=== PATIENT | male | born 1995 | race Caucasian/White ===

== ENCOUNTER 2016-07-26 15:55 | Emergency (ER) | payer BC ==
[2016-07-26 16:00] VITALS: BP 142/79
[2016-07-26] MEDS ORDERED: Bacitracin OINTMENT* 1 TUBE TOPICAL ONE (18:45)
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
== END 2016-07-26 19:00 | disposition home or self-care (01) ==
LOC: ED 15:55
DX: T24.211A Burn of second degree of right thigh, initial encounter (principal); Y92.9 Unspecified place or not applicable; T58.11XA Toxic effect of carbon monoxide from utility gas, accidental (unintentional), initial encounter; Z87.891 Personal history of nicotine dependence
CPT/HCPCS: 99281; A9270-GY

== ENCOUNTER 2016-07-27 13:06 | Emergency (ER) | payer BC ==
[2016-07-27] MEDS ORDERED: Ondansetron INJ* 2 MG/ML VIAL IV ONE (17:06)
[2016-07-27] MEDS ORDERED: NS 0.9% 1000 ML* 2,000 ML IV ONE (17:06)
[2016-07-27] MEDS ORDERED: Albuterol/Ipratropium NEB.SOL* Albuterol 2.5 MG/Ipratropium 0.5 MG 3 ML INH ONE (17:07)
--- NOTE | 2016-07-27 18:33 | RAD ---
INDICATION: Shortness of breath. COMPARISON: Similar chest x-ray November 15, 2015 TECHNIQUE: PA and lateral views of the chest were obtained. FINDINGS: The heart and mediastinum are normal in size and contour. The lungs are grossly clear. There is no evidence of large pleural effusion. Visualized bones are normal for the patient's age. There is no radiographic evidence of free air beneath the diaphragm IMPRESSION: No radiographic evidence of acute cardiopulmonary disease.
[2016-07-27 18:38] LABS: Hematocrit 44 % (42-52); Hemoglobin 15.2 g/dl (14.0-18.0); Mean Corpuscular HGB Conc 34 g/dl (31-36); Mean Corpuscular Hemoglobin 29 pg (27-31); Mean Corpuscular Volume 84 fL (80-94); Mean Platelet Volume 8 um3 (7.4-10.4); Red Blood Count 5.26 10^6/ul (4.0-5.4); Red Cell Distribution Width 13 % (10.5-15); White Blood Count 8.8 10^3/ul (3.5-10.8)
[2016-07-27 18:56] LABS: Albumin 4.8 g/dL (3.2-5.2); C Reactive Protein 3.14 mg/L (< 5.00); EGFR African American 108.8 (>60); EGFR Non-African American 84.6 (>60); Globulin 2.9 g/dL (2-4); Potassium 3.8 mmol/L (3.5-5.0); Total Bilirubin 0.4 mg/dL (0.2-1.0); Total Protein 7.7 g/dL (6.4-8.9)
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
[2016-07-27 20:32] VITALS: BP 121/64
== END 2016-07-27 20:31 | disposition home or self-care (01) ==
LOC: ED 13:06
DX: J68.0 Bronchitis and pneumonitis due to chemicals, gases, fumes and vapors (principal); R06.02 Shortness of breath; R11.2 Nausea with vomiting, unspecified; R19.7 Diarrhea, unspecified; R07.9 Chest pain, unspecified
CPT/HCPCS: 36415; 71020; 80053; 83605; 83690; 85025; 86140; 94640; 94760; 96374; 99283; A9270-GY; J2405

== ENCOUNTER 2016-10-12 10:05 | Emergency (ER) | payer BC ==
[2016-10-12 10:29] VITALS: BP 119/60
--- NOTE | 2016-10-12 11:02 | UC ---
Respiratory Complaint HPI - HPI Summary HPI Summary: 4 DAYS OF SINUS PRESSURE, COUGH, CONGESTION. NO FEVER, N/V/D. - History of Current Complaint Chief Complaint: UCRespiratory Stated Complaint: RESP ISSUE Time Seen by Provider: 10/12/16 10:48 Hx Obtained From: Patient Onset/Duration: Gradual Onset, Lasting Days, Still Present Timing: Constant Severity Initially: Moderate Severity Currently: Moderate Pain Intensity: 5 Pain Scale Used: 0-10 Numeric Character: Cough: Productive Aggravating Factors: Nothing Alleviating Factors: Nothing Associated Signs And Symptoms: Positive: URI, Nasal Congestion, Sinus Discomfort. Negative: Fever, Wheezing - Allergies/Home Medications Allergies/Adverse Reactions: Allergies Allergy/AdvReac Type Severity Reaction Status Date / Time Penicillins Allergy Severe Anaphylatic Verified 10/12/16 10:24 Shock Home Medications: Home Medications Uonvigb-Cazsqluixmmqb-Gvsqivqv [Excedrin Migraine 250-250-65 mg] 10/12/16 [ History] Phenylephrine-Dm [Daytime Cold & Cough Chil 2.5-5 mg/5Ml] 10/12/16 [History Confirmed 10/12/16] Ygvutgwgtidvd-Audwkpnocy-Mkmjp [Nyquil Severe Cold/Flu 5-6.25-10-325 mg/15Ml] 10/12/16 [History] PMH/Surg Hx/FS Hx/Imm Hx Previously Healthy: Yes - Surgical History Surgical History: Yes Surgery Procedure, Year, and Place: appendectomy - Family History Known Family History: Positive: Hypertension, Diabetes, Other - asthma no family history of GI conditions - Social History Alcohol Use: Daily Alcohol Amount: 2-3 beers a day Substance Use Type: None Smoking Status (MU): Never Smoked Tobacco Type: Smokeless Tobacco Have You Smoked in the Last Year: No When Did the Patient Quit Smoking/Using Tobacco: 3 YRS AGO Review of Systems Constitutional: Negative ENT: Sore Throat, Nasal Discharge Respiratory: Cough Cardiovascular: Negative Gastrointestinal: Negative Neurological: Headache All Other Systems Reviewed And Are Negative: Yes Physical Exam Triage Information Reviewed: Yes Appearance: Well-Appearing, No Pain Distress, Well-Nourished Vital Signs: Initial Vital Signs Temp 97.4 F 10/12/16 10:24 Pulse 68 10/12/16 10:24 Resp 16 10/12/16 10:24 BP 119/60 10/12/16 10:24 Pulse Ox 100 10/12/16 10:24 Vital Signs Reviewed: Yes Eyes: Positive: Conjunctiva Clear ENT: Positive: Hearing grossly normal, Pharynx normal, TMs normal Neck: Positive: Supple, Nontender, No Lymphadenopathy Respiratory Exam: Normal Cardiovascular Exam: Normal Abdomen Description: Positive: Soft Musculoskeletal: Positive: No Edema Neurological: Positive: Alert Psychological: Positive: Age Appropriate Behavior Skin: Negative: rashes UC Diagnostic Evaluation - Laboratory O2 Sat by Pulse Oximetry: 100 Respiratory Course/Dx - Differential Dx/Diagnosis Provider Diagnoses: ACUTE URI Discharge - Discharge Plan Condition: Stable Disposition: HOME Patient Education Materials: Upper Respiratory Infection (ED) Referrals: No Primary Care Phys,NOPCP [Primary Care Provider] - Additional Instructions: ACUTE UPPER RESPIRATORY INFECTION The common cold is a benign self-limited syndrome representing a group of diseases caused by members of several families of viruses. It is the most frequent acute illness in the [place] and throughout the industrialized world. The term "common cold" refers to a mild upper respiratory viral infection involving, to variable degrees, nasal congestion and discharge ( rhinorrhea), sneezing, sore throat, cough, low-grade fever, headache, and malaise. Symptomatic therapy remains the mainstay of common cold treatment. In the absence of convincing evidence of a secondary bacterial infection, antibiotics are not effective in the treatment of the common cold and should not be prescribed. Be advised that the usual course and duration of illness is up to one and a half weeks for patients with a cold, but can last slightly longer; symptoms usually persist longer in smokers. CALL THE NUMBER BELOW FOR ASSISTANCE IN ESTABLISHING WITH A PCP An additional resource available to assist in finding the appropriate physician for your health care needs is the [facility] ([facility]). You may contact them by calling [phone].
== END 2016-10-12 11:16 | disposition home or self-care (01) ==
LOC: UCEAST 10:05
DX: J06.9 Acute upper respiratory infection, unspecified (principal); Z88.0 Allergy status to penicillin
CPT/HCPCS: 99211; G0463

== ENCOUNTER 2017-08-15 07:01 | Emergency (ER) | payer BC ==
[2017-08-15 07:15] VITALS: BP 125/82
[2017-08-15] MEDS ORDERED: Tetan/Diph/Pertus SYR(Tdap)* 0.5 ML SYR(BOOSTRIX) use SYR IM ONE (07:27)
--- NOTE | 2017-08-15 07:33 | UC ---
Alfonso Navarrete Tenzin, scribed for Dawn Fam MD on 08/15/17 at 0728 . Skin Complaint HPI - HPI Summary HPI Summary: Pt is a 22 years old male presenting to the complaining of open wound on his left foot two weeks ago. Pt is also complaining of the wound getting infected and he used rubbing alcohol on it. Pt rates the pain at 2/10 in severity and describes it as sharp pain Pt states had discharge, thicjj whicte from wound Pt states squeezed out no odor residual erythema. pt also report rash on ankles appeared couple months ago on his left foot and radiated to his upper calf. not raised. not ithing, no pain. Denies blood in stool, gums . No aggravating and alleviating factors were noted. He drinks occasionally couple times a month. Pt does not have PCP. Pt states mostly concerned regarding wound. Allergic to penicillin. He is on his feet a lot for his job. He has not gotten tetanus shot. pt's medications reviewed this visit - History of Current Complaint Chief Complaint: UCGeneralIllness Time Seen by Provider: 08/15/17 07:17 Stated Complaint: SKIN ISSUE ON FOOT Hx Obtained From: Patient Onset/Duration: Lasting Weeks - two weeks ago Onset Severity: Mild Current Severity: Mild Pain Intensity: 2 Pain Scale Used: 0-10 Numeric Location: Foot (Left) Aggravating Factor(s): Nothing Alleviating Factor(s): Nothing - Allergy/Home Medications Allergies/Adverse Reactions: Allergies Allergy/AdvReac Type Severity Reaction Status Date / Time Penicillins Allergy Anaphylatic Verified 08/15/17 07:08 Shock Review of Systems Constitutional: Negative Skin: Other - open wound on left foot. Eyes: Negative ENT: Negative Respiratory: Negative Cardiovascular: Negative Gastrointestinal: Negative Genitourinary: Negative Motor: Negative Neurovascular: Negative Musculoskeletal: Negative Neurological: Negative Psychological: Negative Is Patient Immunocompromised?: Yes All Other Systems Reviewed And Are Negative: Yes PMH/Surg Hx/FS Hx/Imm Hx - Additional Past Medical History Additional PMH: NEGATIVE: MS, PE Previously Healthy: Yes - Surgical History Surgical History: Yes Surgery Procedure, Year, and Place: appendectomy - Family History Known Family History: Positive: Hypertension, Diabetes, Other - asthma no family history of GI conditions - Social History Occupation: Employed Full-time Lives: With Family Alcohol Use: Daily Alcohol Amount: 2-3 beers a day Substance Use Type: None Smoking Status (MU): Never Smoked Tobacco Type: Smokeless Tobacco Have You Smoked in the Last Year: No When Did the Patient Quit Smoking/Using Tobacco: 3 YRS AGO - Immunization History Most Recent Tetanus Shot: UNK Physical Exam - Summary Physical Exam Summary: Vital Signs Reviewed: Yes A+Ox3, no distress Eyes: Conjunctiva Clear, AAKASH. EOM intact and full ENT: Hearing grossly normal TM x 2 clear, mmoist, uvula midline, no exudate, no erythema Neck: Positive: Supple Respiratory: Positive: No respiratory distress, No accessory muscle use + CTA throughout no w/r Cardiovascular: RRR nl s1, s2 no m/r CBT <2 sec abd soft + BS nt/nd no guarding, no distension Musculoskeletal Exam: CAT x 4 without difficulty Strength Intact, ROM Intact Neurological: Positive: Alert, + sensation throughout Psychological: Positive: Normal Response To Family Skin: Positive: no ecchymosis top of left foot pt with 1cm abraison with cicumferencial erythema. no fluctuance mild induration. no drainage or discharge mild tenderness Pt also noted to have petechiae appearing lesions to b/l LE - various depth of darkness in color flat, non tender both feet L>R Triage Information Reviewed: Yes Vital Signs: Initial Vital Signs Temp 97.9 F 08/15/17 07:11 Pulse 91 08/15/17 07:11 Resp 17 08/15/17 07:11 BP 125/82 08/15/17 07:11 Pulse Ox 96 08/15/17 07:11 Course/Dx - Course Course Of Treatment: Pt with wound with mild cellulitis. tdap, abx, soak, wound care, worsening infection. petechia - only notes on feet. Pt otherwise well appearing. will check labs. physician referral center. strict return precautions. pt understanding and agreement with plan - Diagnoses Provider Diagnoses: wound infection. petechiae Discharge - Sign-Out/Discharge Documenting (check all that apply): Discharge/Admit/Transfer - Discharge Plan Condition: Stable Disposition: HOME Prescriptions: DOXYcycline CAP(*) [DOXYcycline 100MG CAP(*)] 100 mg PO BID #14 cap Patient Education Materials: Acute Wound Care (ED), Tdap and Td Vaccines for Adults (ED), Purpura (ED) Forms: *Work Release Referrals: [facility] [place] [facility] [Outside] No Primary Care Phys,NOPCP [Primary Care Provider] - Additional Instructions: - Take antibiotics as prescribed - cover your wound with a thin layer of antibiotic and an bandage to prevent rubbing on your shoe and sock - you were given a tetanus booster today - this may cause your arm to be sore tomorrow- this is normal - Okay to Take Tylenol every 6 hour as needed for pain - Regarding your rash- you had laboratory tests done today to check your blood levels. If there are concerning findings you will receive a call from a care coding team lead - It is recommended you avoid nonsteroidal anti-inflammatory medications (Motrin , Advil, Ibuprofen, Naproxyn, Aleve) -It is recommended you establish with a primary care provider. Contact the physician referral center to get assistance If you develop fever, abdominal pain, vomiting, spontaneous bleeding or any other concerns it is recommended you go directly to the emergency department - Billing Disposition and Condition Condition: STABLE Disposition: Home The documentation as recorded by the Alfonso alvarado Tenzin accurately reflects the service I personally performed and the decisions made by me, Dawn Fam MD.
[2017-08-15 10:52] LABS: ABS Basophils 0.1 10^3/ul (0-0.2); ABS Eosinophils 0.3 10^3/ul (0-0.6); ABS Lymphocytes 2.4 10^3/ul (1.0-4.8); ABS Monocytes 0.7 10^3/ul (0-0.8); ABS Nucleated RBC 0 10^3/ul; Eosinophil % 4.3 % (0-6); Hematocrit 39 % (42-52); Hemoglobin 13.4 g/dl (14.0-18.0); Lymphocyte % 37.8 % (25-47); Mean Corpuscular HGB Conc 35 g/dl (31-36); Mean Corpuscular Hemoglobin 29 pg (27-31); Mean Corpuscular Volume 85 fL (80-94); Mean Platelet Volume 7.7 um3 (7.4-10.4); Nucleated Red Blood Cells % 0.1; Platelet Count 281 10^3/ul (150-450); Red Blood Count 4.56 10^6/ul (4.00-5.40); Red Cell Distribution Width 13 % (10.5-15); White Blood Count 6.4 10^3/ul (3.5-10.8)
[2017-08-15 11:09] LABS: EGFR Non-African American 76.5 (>60)
--- NOTE | 2017-08-16 10:31 | UC ---
- Progress Note Progress Note: PLEASE CALL PATIENT. ADVISE THAT LABS ARE GROSSLY NORMAL HOWEVER SOME SLIGHT ELEVATION IN LIVER FUNCTION TESTS AND CREATININE. NO ACUTE INTERVENTION INDICATED BUT WOULD RECOMMEND REPEATING METABOLIC PANEL IN A COUPLE OF WEEKS TO ENSURE NORMALIZATION. - WILLI KUO MD Discharge - Sign-Out/Discharge Documenting (check all that apply): Post-Discharge Follow Up - Discharge Plan Condition: Stable Disposition: HOME Prescriptions: DOXYcycline CAP(*) [DOXYcycline 100MG CAP(*)] 100 mg PO BID #14 cap Patient Education Materials: Acute Wound Care (ED), Tdap and Td Vaccines for Adults (ED), Purpura (ED) Forms: *Work Release Referrals: [facility] [place] [facility] [Outside] No Primary Care Phys,NOPCP [Primary Care Provider] - Additional Instructions: - Take antibiotics as prescribed - cover your wound with a thin layer of antibiotic and an bandage to prevent rubbing on your shoe and sock - you were given a tetanus booster today - this may cause your arm to be sore tomorrow- this is normal - Okay to Take Tylenol every 6 hour as needed for pain - Regarding your rash- you had laboratory tests done today to check your blood levels. If there are concerning findings you will receive a call from a care sample steamer - It is recommended you avoid nonsteroidal anti-inflammatory medications (Motrin , Advil, Ibuprofen, Naproxyn, Aleve) -It is recommended you establish with a primary care provider. Contact the physician referral center to get assistance If you develop fever, abdominal pain, vomiting, spontaneous bleeding or any other concerns it is recommended you go directly to the emergency department - Billing Disposition and Condition Condition: STABLE Disposition: Home
== END 2017-08-15 07:45 | disposition home or self-care (01) ==
LOC: UCEAST 07:01
DX: S91.302A Unspecified open wound, left foot, initial encounter (principal); L03.116 Cellulitis of left lower limb; R23.3 Spontaneous ecchymoses; R21 Rash and other nonspecific skin eruption; Z88.0 Allergy status to penicillin; Z87.891 Personal history of nicotine dependence; X58.XXXA Exposure to other specified factors, initial encounter; Y92.9 Unspecified place or not applicable
CPT/HCPCS: 36415; 80053; 85025; 90471; 90715; 99212; G0463

== ENCOUNTER 2017-08-17 14:39 | Emergency (ER) | payer BC ==
[2017-08-17] MEDS ORDERED: NS 0.9% 1000 ML* 1,000 ML IV ONE (14:57)
[2017-08-17 15:57] LABS: ABS Basophils 0 10^3/ul (0-0.2); ABS Eosinophils 0.1 10^3/ul (0-0.6); ABS Lymphocytes 1.9 10^3/ul (1.0-4.8); ABS Monocytes 0.5 10^3/ul (0-0.8); ABS Neutrophils 3.7 10^3/ul (1.5-7.7); ABS Nucleated RBC 0 10^3/ul; Eosinophil % 1.2 % (0-6); Hematocrit 39 % (42-52); Hemoglobin 13.3 g/dl (14.0-18.0); Lymphocyte % 30.5 % (25-47); Mean Corpuscular HGB Conc 34 g/dl (31-36); Mean Corpuscular Hemoglobin 29 pg (27-31); Mean Corpuscular Volume 84 fL (80-94); Nucleated Red Blood Cells % 0.1; Platelet Count 289 10^3/ul (150-450); Red Blood Count 4.58 10^6/ul (4.00-5.40); Red Cell Distribution Width 13 % (10.5-15); White Blood Count 6.2 10^3/ul (3.5-10.8)
[2017-08-17 16:14] LABS: EGFR Non-African American 72.9 (>60)
[2017-08-17] MEDS ORDERED: Ibuprofen TAB* 600 MG PO ONE (21:02)
--- NOTE | 2017-08-17 21:04 | ED ---
Syncope/Near Syncope - HPI Summary HPI Summary: Complains of lightheadedness starting today at noon when standing, N/V 1, intermittent AGUIRRE 1 week. No active headache or lightheadedness currently here in the ED. States symptoms improved after eating something. History of intermittent lightheadedness 1 year. Patient states he eats only once a day, but does drink water. Lightheadedness typically improves if he eats something. Is not see PCP so medical history is unknown. Denies fever, cough, sore throat, CP, SOB, diarrhea, abdominal pain, change in urinary BM. Medical history is none. Denies history of blood clots, recent trauma or surgery, unilateral leg pain, hemoptysis. Nonsmoker, occasional EtOH. Denies illegal drug use except marijuana - History Of Current Complaint Chief Complaint: EDDizziness Time Seen by Provider: 08/17/17 17:58 Hx Obtained From: Patient Onset/Duration: Gradual Onset, Lasting Hours Timing: Intermittent Episode Lasting Aggravating Factor(s): Other - Standing up Alleviating Factor(s): Rest Associated Signs And Symptoms: Lightheadedness - Allergies/Home Medications Allergies/Adverse Reactions: Allergies Allergy/AdvReac Type Severity Reaction Status Date / Time Penicillins Allergy Anaphylatic Verified 08/17/17 14:53 Shock Home Medications: Home Medications NK [No Home Medications Reported] 08/17/17 [History Confirmed 08/17/17] PMH/Surg Hx/FS Hx/Imm Hx Endocrine/Hematology History: Denies: Hx Diabetes, Hx Thyroid Disease Cardiovascular History: Denies: Hx Cardiac Arrest, Hx Hypertension Respiratory History: Denies: Hx Asthma, Hx Chronic Obstructive Pulmonary Disease (COPD) GI History: Denies: Hx Ulcer History: Denies: Hx Dialysis EENT History: Denies: Hx Deafness Neurological History: Denies: Hx CVA - Surgical History Surgery Procedure, Year, and Place: appendectomy - Immunization History Date of Tetanus Vaccine: up to date Infectious Disease History: No Infectious Disease History: Denies: Hx Clostridium Difficile, Hx Hepatitis, Hx Human Immunodeficiency Virus (HIV), Hx of Known/Suspected MRSA, Hx Shingles, Hx Tuberculosis, Hx Known/ Suspected VRE, Hx Known/Suspected VRSA, History Other Infectious Disease, Traveled Outside the [place] in Last 30 Days - Family History Known Family History: Positive: Hypertension, Diabetes, Other - asthma no family history of GI conditions - Social History Alcohol Use: Daily Alcohol Amount: 2-3 beers a day Substance Use Type: Reports: None Smoking Status (MU): Never Smoked Tobacco Type: Smokeless Tobacco Have You Smoked in the Last Year: No Review of Systems Constitutional: Negative Eyes: Negative ENT: Negative Cardiovascular: Negative Respiratory: Negative Positive: Vomiting, Nausea Genitourinary: Negative Musculoskeletal: Negative Skin: Negative Neurological: Negative Psychological: Normal All Other Systems Reviewed And Are Negative: Yes Physical Exam Triage Information Reviewed: Yes Vital Signs On Initial Exam: Initial Vitals Temp Pulse Resp BP Pulse Ox 100.1 F 110 20 129/68 100 08/17/17 14:48 08/17/17 14:48 08/17/17 14:48 08/17/17 14:48 08/17/17 14:48 Vital Signs Reviewed: Yes Appearance: Positive: Well-Appearing Skin: Positive: Warm Head/Face: Positive: Normal Head/Face Inspection Eyes: Positive: Normal Neck: Positive: Supple Respiratory/Lung Sounds: Positive: Clear to Auscultation Cardiovascular: Positive: Normal Abdomen Description: Positive: Nontender Musculoskeletal: Positive: Normal Neurological: Positive: Normal Psychiatric: Positive: Normal AVPU Assessment: Alert - Chace Coma Scale Best Eye Response: 4 - Spontaneous Best Motor Response: 6 - Obeys Commands Best Verbal Response: 5 - Oriented Coma Scale Total: 15 Diagnostics - Vital Signs Vital Signs Temp Pulse Resp BP Pulse Ox 08/17/17 18:30 102 123/73 98 08/17/17 18:24 97 117/68 99 08/17/17 18:11 101 125/70 99 08/17/17 18:10 104 115/86 99 08/17/17 18:06 106 115/86 99 08/17/17 18:05 80 128/70 08/17/17 18:01 128/70 08/17/17 16:55 99.1 F 102 12 117/67 97 08/17/17 14:48 100.1 F 110 20 129/68 100 - Laboratory Lab Results: Lab Results 08/17/17 08/17/17 Range/Units 15:45 15:45 WBC 6.2 (3.5-10.8) 10^3/ul RBC 4.58 (4.00-5.40) 10^6/ul Hgb 13.3 L (14.0-18.0) g/dl Hct 39 L (42-52) % MCV 84 (80-94) fL MCH 29 (27-31) pg MCHC 34 (31-36) g/dl RDW 13 (10.5-15) % Plt Count 289 (150-450) 10^3/ul MPV 7.0 L (7.4-10.4) um3 Neut % (Auto) 58.9 (38-83) % Lymph % (Auto) 30.5 (25-47) % [place] % (Auto) 8.7 H (0-7) % Eos % (Auto) 1.2 (0-6) % Baso % (Auto) 0.7 (0-2) % Absolute Neuts (auto) 3.7 (1.5-7.7) 10^3/ul Absolute Lymphs (auto) 1.9 (1.0-4.8) 10^3/ul Absolute Monos (auto) 0.5 (0-0.8) 10^3/ul Absolute Eos (auto) 0.1 (0-0.6) 10^3/ul Absolute Basos (auto) 0 (0-0.2) 10^3/ul Absolute Nucleated RBC 0 10^3/ul Nucleated RBC % 0.1 Sodium 137 (135-145) mmol/L Potassium 3.9 (3.5-5.0) mmol/L Chloride 103 (101-111) mmol/L Carbon Dioxide 26 (22-32) mmol/L Anion Gap 8 (2-11) mmol/L BUN 10 (6-24) mg/dL Creatinine 1.23 H (0.67-1.17) mg/dL Est GFR ( Amer) 93.8 (>60) Est GFR (Non-Af Amer) 72.9 (>60) BUN/Creatinine Ratio 8.1 (8-20) Glucose 92 (70-100) mg/dL Calcium 9.7 (8.6-10.3) mg/dL Result Diagrams: 08/17/17 15:45 08/17/17 15:45 Lab Statement: Any lab studies that have been ordered have been reviewed, and results considered in the medical decision making process. - EKG 1 Cardiac Rate: Tachycardia EKG Rhythm: Sinus Rhythm ST Segment: Non-Specific Ectopy: None Course/Dx Course Of Treatment: Complains of lightheadedness starting today at noon when standing, N/V 1, intermittent AGUIRRE 1 week. No active headache or lightheadedness currently here in the ED. History of intermittent lightheadedness 1 year. Patient states he eats only once a day, but does drink water. Lightheadedness typically improves if he eats something. Is not see PCP so medical history is unknown. Denies fever, cough, sore throat, CP, SOB, diarrhea, abdominal pain, change in urinary BM. Medical history is none. Denies history of blood clots, recent trauma or surgery, unilateral leg pain, hemoptysis. Nonsmoker, occasional EtOH. Denies illegal drug use except marijuana. W/UP: EKG, vital signs and labs unremarkable. Patient developed headache while here in the ED, but no further lightheadedness. Same as prior bilateral frontal headaches this week, which she has been treating successfully with Excedrin. - Diagnoses Provider Diagnoses: Lightheaded, Headache Discharge - Sign-Out/Discharge Documenting (check all that apply): Discharge/Admit/Transfer - Discharge Plan Condition: Stable Disposition: HOME Patient Education Materials: Lightheadedness (ED) Forms: *Work Release Referrals: No Primary Care Phys,NOPCP [Primary Care Provider] - [facility] [Outside] Additional Instructions: Follow-up with primary care for recurrent lightheadedness. Eat more than one meal a day. Return for any new or worsening symptoms - Billing Disposition and Condition Condition: STABLE Disposition: Home
[2017-08-17 21:22] VITALS: BP 112/71
== END 2017-08-17 21:23 | disposition home or self-care (01) ==
LOC: ED 14:39
DX: R42 Dizziness and giddiness (principal); R51 Headache; R11.2 Nausea with vomiting, unspecified
CPT/HCPCS: 36415; 80048; 85025; 93005; 99283; A9270-GY

== ENCOUNTER 2017-09-18 17:49 | Emergency (ER) | payer BC ==
[2017-09-18 18:03] VITALS: BP 137/88
--- NOTE | 2017-09-18 18:23 | RAD ---
INDICATION: Hemoptysis COMPARISON: July 27, 2016 TECHNIQUE: PA and lateral dual-energy views were obtained. FINDINGS: Bones/Soft Tissues: There are no acute bony findings. Cardiomediastinal: The cardiomediastinal silhouette is normal. Lungs: There are no infiltrates. Pleura: There are no pleural effusions. Other: None IMPRESSION: NORMAL CHEST
== END 2017-09-18 20:24 | disposition left against medical advice (07) ==
LOC: ED 17:49
DX: K92.0 Hematemesis (principal); Z53.21 Procedure and treatment not carried out due to patient leaving prior to being seen by health care provider
CPT/HCPCS: 71046

== ENCOUNTER 2017-11-28 12:33 | Emergency (ER) | payer BC ==
[2017-11-28 12:58] VITALS: BP 125/71
--- NOTE | 2017-11-28 13:42 | UC ---
Respiratory Complaint HPI - HPI Summary HPI Summary: 22 y/o male presents to the urgent care c/o body aches, nasal congestion w/ clear nasal discharge, AGUIRRE and dry cough, nausea and light headed for the past 3 days. symptoms started w/ left lower back pain and then the body aches developed. he has Hx of herniated disc. He has decrease appetite, and has not eaten anything for the past 2 days due to nausea. He has not taken his temp, but has felt w/ chills. Pt is drinking fluids. Pain is 6/10 w/ swallowing. He has taking Dayquil and Nyquil PO and cough drops which has helped. Pt denies SOB , chest pain, abdominal pain, V/D, rashes, neck pain, Hx of tick bites or kidney stones. - History of Current Complaint Chief Complaint: UCGeneralIllness Stated Complaint: BODY ACHES, NAUSEA Time Seen by Provider: 11/28/17 13:15 Hx Obtained From: Patient Onset/Duration: Gradual Onset, Lasting Days - 3 days, Still Present, Worse Since - today Timing: Constant Severity Initially: Mild Severity Currently: Moderate Pain Intensity: 6 - w/ swallowing Pain Scale Used: 0-10 Numeric Character: Cough: Nonproductive Alleviating Factors: OTC Meds Associated Signs And Symptoms: Positive: Dyspnea, Chills, URI, Nasal Congestion - Risk Factors Pulmonary Embolism Risk Factors: Negative Cardiac Risk Factors: Negative Pseudomonas Risk Factors: Negative Tuberculosis Risk Factors: Negative - Allergies/Home Medications Allergies/Adverse Reactions: Allergies Allergy/AdvReac Type Severity Reaction Status Date / Time Penicillins Allergy Anaphylatic Verified 11/28/17 12:51 Shock Home Medications: Home Medications Acetaminophen [Tylenol Extra Strength] 1,000 mg PO DAILY PRN 11/28/17 [History Confirmed 11/28/17] Omeprazole 20 mg PO DAILY 11/28/17 [History Confirmed 11/28/17] PMH/Surg Hx/FS Hx/Imm Hx Previously Healthy: Yes GI/ History: Gastroesophageal Reflux Other Neurological History: Herniated disc - Surgical History Surgical History: Yes Surgery Procedure, Year, and Place: appendectomy - Family History Known Family History: Positive: Hypertension, Diabetes, Other - asthma no family history of GI conditions - Social History Occupation: Employed Full-time Lives: With Family Alcohol Use: Daily Alcohol Amount: 2-3 beers a day Substance Use Type: None Smoking Status (MU): Never Smoked Tobacco Type: Smokeless Tobacco Have You Smoked in the Last Year: No When Did the Patient Quit Smoking/Using Tobacco: 3 YRS AGO - Immunization History Most Recent Tetanus Shot: UNK Review of Systems Constitutional: Chills, Fatigue, Other - body aches Skin: Negative Eyes: Negative ENT: Sore Throat, Nasal Discharge, Sinus Congestion Respiratory: Cough - dry Cardiovascular: Negative Gastrointestinal: Nausea Genitourinary: Negative Motor: Negative Neurovascular: Negative Musculoskeletal: Myalgia Neurological: Headache Psychological: Negative Is Patient Immunocompromised?: No All Other Systems Reviewed And Are Negative: Yes Physical Exam - Summary Physical Exam Summary: VITAL SIGNS: Reviewed. GENERAL: Patient is a well developed and nourished male who is sitting comfortable in the examining table. Patient is not in any acute respiratory distress. HEAD AND FACE: No signs of trauma. No ecchymosis, hematomas or skull depressions. No sinus tenderness. EYES: PERRLA, EOMI x 2, No injected conjunctiva, no nystagmus. No photophobia. EARS: Hearing grossly intact. Ear canals and tympanic membranes are within normal limits. Nose: edematous and erythematous nasal mucosa w/ clear nasal discharge. MOUTH: Positive no erythema, no tonsillar enlargement. Uvula in midline. NECK: Supple, trachea is midline, Positive anterior cervical lymphadenopathy, no JVD, no carotid bruit, no c-spine tenderness, neck with full ROM. No meningeal signs, no Kernig's or brudzinskis signs. CHEST: Symmetric, no tenderness at palpation LUNGS: Clear to auscultation bilaterally. No wheezing or crackles. CVS: Regular rate and rhythm, S1 and S2 present, no murmurs or gallops appreciated. ABDOMEN: Soft, non-tender. No signs of distention. No rebound no guarding, and no masses palpated. Bowel sounds are normal. EXTREMITIES: FROM in all major joints, no edema, no cyanosis or clubbing. NEURO: Alert and oriented x 3. No acute neurological deficits. Speech is normal and follows commands. SKIN: Dry and warm Triage Information Reviewed: Yes Vital Signs: Initial Vital Signs Temp 97.8 F 11/28/17 12:52 Pulse 76 11/28/17 12:52 Resp 16 11/28/17 12:52 BP 125/71 11/28/17 12:52 Pulse Ox 98 11/28/17 12:52 Diagnostic Evaluation - Laboratory O2 Sat by Pulse Oximetry: 98 Respiratory Course/Dx - Course Course Of Treatment: 22 y/o male presents to the urgent care c/o body aches, nasal congestion w/ clear nasal discharge, AGUIRRE and dry cough, nausea and light headed for the past 3 days. symptoms started w/ left lower back pain and then the body aches developed. he has Hx of herniated disc. He has decrease appetite , and has not eaten anything for the past 2 days due to nausea. He has not taken his temp, but has felt w/ chills. Pt is drinking fluids. Pain is 6/10 w/ swallowing. He has taking Dayquil and Nyquil PO and cough drops which has helped. Pt denies SOB, chest pain, abdominal pain, V/D, rashes, neck pain, Hx of tick bites or kidney stones. Hx obtained. Pt with Viral syndrome on examination. Rapid strep : negative, Influenza A&B ordered: result: negative., UA:trace of ketones and protein. Pt strongly advised to increase hydration. Pt Rx Ibuprofen PO to alleviates symptoms. Advised on hand washing and wear a mask to avoid spreading. Pt advised to rest, increase fluid intake, eat well and avoid strenuous exercise. If symptoms do not improve or worsen advised to return to the urgent care or f/u with her PCP for further evaluation and treatment. Pt understood and agreed with plan of care. - Differential Dx/Diagnosis Differential Diagnosis/HQI/PQRI: Bronchitis, Influenza, Laryngitis, Sinusitis, Other - pharyngitis Provider Diagnoses: 1- Viral syndrome Discharge - Sign-Out/Discharge Documenting (check all that apply): Patient Departure - D/c home All imaging exams completed and their final reports reviewed: No Studies - Discharge Plan Condition: Stable Disposition: HOME Prescriptions: Ibuprofen TAB* [Motrin TAB* 600 MG] 600 mg PO Q6H PRN #30 tab PRN Reason: Pain Patient Education Materials: Viral Syndrome (ED) Forms: *Work Release Referrals: [facility] [Outside] - 3 Days Additional Instructions: 1-Strep and Influenza A&B are negative. Please take ibuprofen PO q6-8hrs prn as instructed after meals to alleviate pain and swelling. Increase fluid intake, eat well, rest and avoid strenuous exercise 2-If symptoms do not improve or worsen please return to the urgent care or f/u with your PCP in 3 days for further evaluation and treatment. - Billing Disposition and Condition Condition: STABLE Disposition: Home - Attestation Statements Provider Attestation: I was available for consult. This patient was seen by the SHWETA. The patient was not presented to, seen by, or examined by me. -Gonzales
== END 2017-11-28 14:15 | disposition home or self-care (01) ==
LOC: UCEAST 12:33
DX: B34.9 Viral infection, unspecified (principal); Z88.0 Allergy status to penicillin; K21.9 Gastro-esophageal reflux disease without esophagitis; Z87.891 Personal history of nicotine dependence
CPT/HCPCS: 81003; 87651; 99212; G0463

== ENCOUNTER 2019-05-01 08:11 | Emergency (ER) | payer BC ==
[2019-05-01 08:20] VITALS: BP 123/80
[2019-05-01 08:37] LABS: Influenza B Molecular POSITIVE (Negative)
--- NOTE | 2019-05-01 09:07 | UC ---
FLU HPI - HPI Summary HPI Summary: 1 WEEK OF HARSH COUGH, SHORTNESS OF BREATH WITH EXERTION, CONGESTION, HEADACHE, BODY ACHES, SUBJECTIVE FEVER AND CHILLS AREA NO FLU SHOT THIS SEASON. - History of Current Complaint Chief Complaint: UCGeneralIllness Stated Complaint: RESP COMPLAINT Time Seen by Provider: 05/01/19 08:52 Hx Obtained From: Patient Onset/Duration: Gradual Onset, Lasting Days, Still Present Severity Currently: Moderate Severity Initially: Moderate Pain Intensity: 0 Pain Scale Used: 0-10 Numeric Associated Signs & Symptoms: Positive: Fever, Myalgia, Cough, Nasal Congestion, Headache - Allergy/Home Medications Allergies/Adverse Reactions: Allergies Allergy/AdvReac Type Severity Reaction Status Date / Time Penicillins Allergy Anaphylatic Verified 05/01/19 08:15 Shock Home Medications: Home Medications Omeprazole 20 mg PO DAILY 11/28/17 [History Confirmed 05/01/19] PMH/Surg Hx/FS Hx/Imm Hx GI/ History: Gastroesophageal Reflux - Surgical History Surgical History: Yes Surgery Procedure, Year, and Place: appendectomy - Family History Known Family History: Positive: Hypertension, Diabetes, Other - asthma no family history of GI conditions - Social History Alcohol Use: Rare Alcohol Amount: 2-3 beers a day Substance Use Type: None Smoking Status (MU): Never Smoked Tobacco Type: Smokeless Tobacco Have You Smoked in the Last Year: No When Did the Patient Quit Smoking/Using Tobacco: 3 YRS AGO - Immunization History Most Recent Tetanus Shot: UNK Review of Systems All Other Systems Reviewed And Are Negative: Yes Constitutional: Positive: Fever, Chills, Fatigue ENT: Positive: Nasal Discharge Respiratory: Positive: Shortness Of Breath, Cough Cardiovascular: Positive: Negative Gastrointestinal: Positive: Negative Musculoskeletal: Positive: Myalgia Neurological/Mental Status: Positive: Headache Physical Exam Triage Information Reviewed: Yes Appearance: No Pain Distress, Well-Nourished, Ill-Appearing - FATIGUED Vital Signs: Initial Vital Signs Temp 99 F 05/01/19 08:16 Pulse 106 05/01/19 08:16 Resp 16 05/01/19 08:16 BP 123/80 05/01/19 08:16 Pulse Ox 98 05/01/19 08:16 Laboratory Tests 05/01/19 08:33 Influenza B (Rapid) Positive H Vital Signs Reviewed: Yes Eyes: Positive: Conjunctiva Clear ENT: Positive: Hearing grossly normal, Pharynx normal, TMs normal Neck: Positive: Supple, Nontender, No Lymphadenopathy Respiratory Exam: Normal Cardiovascular: Positive: Tachycardia Abdomen Description: Positive: Soft Musculoskeletal: Positive: No Edema Neurological: Positive: Alert Psychological: Positive: Age Appropriate Behavior Skin: Negative: Rashes Diagnostics - Radiology CXR Radiology Interpretation Completed By: Radiologist Summary of Radiographic Findings: NO EVIDENCE FOR ACTIVE CARDIOPULMONARY DISEASE. Flu Course/Dx - Course Course Of Treatment: SWAB POSITIVE FOR INFLUENZA B. PATIENT IS OUTSIDE THE WINDOW FOR TAMIFLU. ADVISED REST, HYDRATION, OTC MEDS NEEDED. PATIENT WAS CONCERNED ABOUT THE COUGH SO CHEST X-RAY WAS DONE AND UNREMARKABLE. SEEK FOLLOW-UP IF NOT IMPROVING OVER THE NEXT WEEK. - Differential Dx/Diagnosis Provider Diagnosis: Influenza B Discharge ED - Sign-Out/Discharge Documenting (check all that apply): Patient Departure All imaging exams completed and their final reports reviewed: Yes - Discharge Plan Condition: Stable Disposition: HOME Patient Education Materials: Influenza (ED) Forms: *Work Release Referrals: [facility] [Outside] - If Needed Additional Instructions: SWAB POSITIVE FOR INFLUENZA B. YOU ARE OUTSIDE THE WINDOW FOR TAMIFLU. OTC MEDS NEEDED FOR FEVER, BODY ACHES. STAY WELL HYDRATED AND RESTED. SEEK FOLLOW-UP IF YOU ARE NOT IMPROVING EXPECTED. CALL THE NUMBER BELOW FOR ASSISTANCE IN ESTABLISHING WITH A PCP An additional resource available to assist in finding the appropriate physician for your health care needs is the [facility] ([facility]). You may contact them by calling [phone]. - Billing Disposition and Condition Condition: STABLE Disposition: Home
== END 2019-05-01 10:11 | disposition home or self-care (01) ==
LOC: UCEAST 08:11
DX: J10.1 Influenza due to other identified influenza virus with other respiratory manifestations (principal); K21.9 Gastro-esophageal reflux disease without esophagitis; Z88.0 Allergy status to penicillin; Z79.899 Other long term (current) drug therapy
CPT/HCPCS: 71046; 99211; G0463

== ENCOUNTER 2019-05-11 08:42 | Emergency (ER) | payer BC ==
[2019-05-11 08:51] VITALS: BP 132/78
--- NOTE | 2019-05-11 09:42 | ED ---
Respiratory - HPI Summary HPI Summary: 23-year-old white male presents with cough with yellow/green sputum pleuritic chest pain 1 week, associated with body aches. Patient was diagnosed with flu B about 1 week ago and was seen in the urgent care, but was not treated with Tamiflu due to diagnosis being outside the treatment window. Patient is currently taking Tamiflu for flu but cough symptoms are continually worsening associated with some vomiting. - History of Current Complaint Chief Complaint: UCGeneralIllness Stated Complaint: COUGH RUNNY NOSE BACK PAIN CHILLS Time Seen by Provider: 05/11/19 09:01 Hx Obtained From: Patient Onset/Duration: Lasting Days, Lasting Weeks Initial Severity: Moderate Current Severity: Moderate Pain Intensity: 0 Character: Cough (Productive) Sputum Amount: Moderate Sputum Color: Yellow, Green Aggravating Factor(s): Nothing Alleviating Factor(s): Nasal Suction - Allergy/Home Medications Allergies/Adverse Reactions: Allergies Allergy/AdvReac Type Severity Reaction Status Date / Time Penicillins Allergy Anaphylatic Verified 05/11/19 08:52 Shock Home Medications: Home Medications Azithromycin TAB* [Zithromax TAB (Z-TORIBIO) 250 mg #6 tabs] 2 tab PO .TODAY, THEN 1 DAILY #1 toribio 05/11/19 [Rx] predniSONE 10 mg TAB [Deltasone 10 MG TAB*] 10 mg PO DAILY 5 Days #5 tab [Rx] PMH/Surg Hx/FS Hx/Imm Hx Previously Healthy: Yes Endocrine/Hematology History: Denies: Hx Diabetes, Hx Thyroid Disease Cardiovascular History: Denies: Hx Cardiac Arrest, Hx Hypertension Respiratory History: Denies: Hx Asthma, Hx Chronic Obstructive Pulmonary Disease (COPD) GI History: Denies: Hx Ulcer History: Denies: Hx Dialysis Sensory History: Denies: Hx Deafness Neurological History: Denies: Hx CVA - Surgical History Surgery Procedure, Year, and Place: appendectomy - Immunization History Date of Tetanus Vaccine: up to date Infectious Disease History: No Infectious Disease History: Denies: Hx Clostridium Difficile, Hx Hepatitis, Hx Human Immunodeficiency Virus (HIV), Hx of Known/Suspected MRSA, Hx Shingles, Hx Tuberculosis, Hx Known/ Suspected VRE, Hx Known/Suspected VRSA, History Other Infectious Disease, Traveled Outside the [place] in Last 30 Days - Family History Known Family History: Positive: Hypertension, Diabetes, Other - asthma no family history of GI conditions - Social History Alcohol Use: Rare Alcohol Amount: 2-3 beers a day Substance Use Type: Reports: None Hx Tobacco Use: No Smoking Status (MU): Never Smoked Tobacco Type: Smokeless Tobacco Have You Smoked in the Last Year: No Review of Systems Positive: Fatigue Eyes: Negative ENT: Negative Cardiovascular: Negative Positive: Cough, Other - pleuritic CP Gastrointestinal: Negative Genitourinary: Negative Musculoskeletal: Negative Skin: Negative All Other Systems Reviewed And Are Negative: Yes Physical Exam - Summary Physical Exam Summary: Vital Signs Reviewed: Yes Eye Exam: Normal Eyes: Positive: Conjunctiva Clear ENT: Positive: Normal ENT inspection Neck: Positive: Supple Respiratory Exam: Normal Respiratory: Positive: +Rhonchi with cough Cardiovascular Exam: Normal, RRR, S1, S2 Abdomen: NT/ND Musculoskeletal Exam: Normal Neurological Exam: Normal Psychological Exam: Normal Skin Exam: Normal Triage Information Reviewed: Yes Vital Signs On Initial Exam: Initial Vitals Temp Pulse Resp BP Pulse Ox 36.8 C 100 20 132/78 98 05/11/19 08:49 05/11/19 08:49 05/11/19 08:49 05/11/19 08:49 05/11/19 08:49 Diagnostics - Vital Signs Vital Signs Temp Pulse Resp BP Pulse Ox 05/11/19 08:49 36.8 C 100 20 132/78 98 - Laboratory Lab Statement: Any lab studies that have been ordered have been reviewed, and results considered in the medical decision making process. Disposition - Course Assessment/Plan: CXR- some perihilar peribronchial cuffing- will tx for bronchitis in light of recent flu and worsening sx - Diagnoses Provider Diagnoses: Bronchitis Discharge ED - Sign-Out/Discharge Documenting (check all that apply): Patient Departure All imaging exams completed and their final reports reviewed: Yes - Discharge Plan Condition: Stable Disposition: HOME Prescriptions: Azithromycin TAB* [Zithromax TAB (Z-TORIBIO) 250 mg #6 tabs] 2 tab PO .TODAY, THEN 1 DAILY #1 toribio predniSONE 10 mg TAB [Deltasone 10 MG TAB*] 10 mg PO DAILY 5 Days #5 tab Patient Education Materials: Acute Bronchitis (ED) - Billing Disposition and Condition Condition: STABLE Disposition: Home
== END 2019-05-11 11:01 | disposition home or self-care (01) ==
LOC: UCEAST 08:42
DX: J40 Bronchitis, not specified as acute or chronic (principal); Z88.1 Allergy status to other antibiotic agents
CPT/HCPCS: 71046; 99212; G0463